=== PATIENT | male | born 1990 | race Caucasian/White ===

== ENCOUNTER 2017-09-20 20:25 | Emergency (ER) | payer MEDICARE, MEDICAID ==
[~2017-09-20] VITALS: Ht 162.6 cm; Wt 63.0 kg
[2017-09-20 20:27] VITALS: BP 131/79
[2017-09-20] MEDS ORDERED: TRAZ50TA18 PO (21:03)
[2017-09-20] MEDS ORDERED: HYDR-3307 PO (21:04)
== END 2017-09-20 21:30 | disposition home or self-care (01) ==
LOC: ED 21:24
DX: R07.89 Other chest pain (principal); M25.572 Pain in left ankle and joints of left foot
CPT/HCPCS: 71020; 93005; 99284

== ENCOUNTER 2017-11-10 09:55 | Emergency (ER) | payer MEDICARE, MEDICAID ==
[~2017-11-10] VITALS: Ht 162.6 cm; Wt 65.1 kg
[~2017-11-10 09:55] MED LIST: HYDR-3307 PO; TRAZ50TA18 PO
[2017-11-10 10:01] VITALS: BP 117/82
[2017-11-10] MEDS ORDERED: MELO15TA6 PO (10:09)
== END 2017-11-10 11:22 | disposition home or self-care (01) ==
LOC: ED 11:19
DX: J02.8 Acute pharyngitis due to other specified organisms (principal); B97.89 Other viral agents as the cause of diseases classified elsewhere
CPT/HCPCS: 87081; 87880; 99284

== ENCOUNTER 2017-11-17 03:03 | Emergency (ER) | payer MEDICARE, MEDICAID ==
[~2017-11-17] VITALS: Ht 162.6 cm; Wt 62.8 kg
[~2017-11-17 03:03] MED LIST changes: +MELO15TA6 PO
[2017-11-17 03:05] VITALS: BP 133/115
== END 2017-11-17 04:55 | disposition home or self-care (01) ==
LOC: ED 03:25
DX: R05 Cough (principal); R07.9 Chest pain, unspecified; F17.200 Nicotine dependence, unspecified, uncomplicated
CPT/HCPCS: 71046; 93005; 99284

== ENCOUNTER 2018-05-07 14:03 | Emergency (ER) | payer MEDICARE, MEDICAID ==
[~2018-05-07] VITALS: Ht 162.6 cm; Wt 65.9 kg
[2018-05-07 14:05] VITALS: BP 103/69
[2018-05-07] MEDS ORDERED: METHOCARBAMOL 750 MG TABLET ONE (14:35)
[2018-05-07] MEDS ORDERED: KETOROLAC 30 MG/1 ML ONE (14:35)
[2018-05-07] MEDS ORDERED: METHOCARBAMOL 500 MG TABLET PO ONE (15:00)
[2018-05-07] MEDS ORDERED: KETOROLAC 30 MG/1 ML IM ONE (15:00)
[2018-05-07] MEDS ORDERED: METHOCARBAMOL 750 MG TABLET PO ONE (15:30)
== END 2018-05-07 15:51 | disposition home or self-care (01) ==
LOC: ED 14:30
DX: M54.5 Low back pain (principal); M62.830 Muscle spasm of back
CPT/HCPCS: 96372; 99283; J1885

== ENCOUNTER 2018-09-03 11:43 | Emergency (ER) | payer MEDICARE, MEDICAID ==
[~2018-09-03] VITALS: Ht 162.6 cm; Wt 62.4 kg
[~2018-09-03 11:43] MED LIST changes: +TRAZ-136 PO; -TRAZ50TA18 PO
[2018-09-03] MEDS ORDERED: PRED20TA PO (12:11)
[2018-09-03 13:23] VITALS: BP 134/83
== END 2018-09-03 13:25 | disposition home or self-care (01) ==
LOC: ED 12:27
DX: J45.41 Moderate persistent asthma with (acute) exacerbation (principal); F17.200 Nicotine dependence, unspecified, uncomplicated
CPT/HCPCS: 71045; 93005; 99284